=== PATIENT | female | born 1940 | race African-American/Black ===

== ENCOUNTER 2017-07-14 04:41 | Emergency (ER) | payer MEDICARE, BC ==
[~2017-07-14] VITALS: Ht 162.6 cm; Wt 68.0 kg
[2017-07-14 05:43] LABS: BASOPHILS % 0.8 % (0.0-2.0); EOSINOPHILS % 1.8 % (0.0-5.0); HEMATOCRIT. 34.5 % (36.0-48.0); HEMOGLOBIN. 11.8 g/dL (12.0-16.0); LYMPHOCYTES % 20.1 % (20.0-50.0); MEAN CORPUSCULAR HEMOGLOBIN 30.7 pg (28.0-32.0); MEAN CORPUSCULAR VOLUME 89.5 fL (81.0-99.0); MEAN PLATELET VOLUME 8.6 fl (7.4-10.4); MONOCYTES % 6.4 % (2.0-8.0); NEUTROPHILS % 70.9 % (40.0-76.0); PLATELET 207 x1000/uL (130-400); RED BLOOD CELL COUNT 3.86 mill/uL (4.2-5.4); RED CELL DISTRIBUTION WIDTH 14.4 % (11.6-14.6)
[2017-07-14 05:45] LABS: CHLORIDE 108 mEq/L (98-107)
[2017-07-14 05:46] LABS: PROTHROMBIN TIME 10.2 sec (9.4-11.6)
[2017-07-14] MEDS ORDERED: IBUPROFEN 600MG TABLET PO ONE (06:30)
[2017-07-14 06:56] LABS: CLARITY URINE CLEAR (CLEAR); COLOR URINE YELLOW (YELLOW); KETONES URINE NEGATIVE (NEGATIVE); LEUKOCYTE ESTERASE URINE NEGATIVE (NEGATIVE); NITRITE URINE NEGATIVE (NEGATIVE); OCCULT BLOOD URINE NEGATIVE (NEGATIVE); PH URINE 7.5 (4.5-8.0); PROTEIN URINE 2+ (NEGATIVE); SPECIFIC GRAVITY URINE 1.012 (1.005-1.030); UROBILINOGEN URINE 0.2 E.U./dL (0.2-1.0)
[2017-07-14 07:24] VITALS: BP 134/58
== END 2017-07-14 07:54 | disposition home or self-care (01) ==
LOC: ER 04:41
DX: R51 Headache (principal); I10 Essential (primary) hypertension; N28.9 Disorder of kidney and ureter, unspecified; E05.90 Thyrotoxicosis, unspecified without thyrotoxic crisis or storm; R79.1 Abnormal coagulation profile
CPT/HCPCS: 36415; 71045; 80053; 81003; 83880; 84484; 85025; 85610; 93005; 99285

== ENCOUNTER 2017-07-29 10:40 | Inpatient (IN) | payer MEDICARE, BC ==
[~2017-07-29] VITALS: Ht 162.6 cm; Wt 72.1 kg
[2017-07-29 11:39] LABS: CHLORIDE 110 mEq/L (98-107)
[2017-07-29 11:40] LABS: PROTHROMBIN TIME 10.3 sec (9.4-11.6)
[2017-07-29 11:52] LABS: BASOPHILS % 0.5 % (0.0-2.0); EOSINOPHILS % 0.2 % (0.0-5.0); HEMATOCRIT. 41.6 % (36.0-48.0); HEMOGLOBIN. 14.2 g/dL (12.0-16.0); LYMPHOCYTES % 8.4 % (20.0-50.0); MEAN CORPUSCULAR HEMOGLOBIN 30.1 pg (28.0-32.0); MEAN CORPUSCULAR VOLUME 88.2 fL (81.0-99.0); MEAN PLATELET VOLUME 9.2 fl (7.4-10.4); MONOCYTES % 4.7 % (2.0-8.0); NEUTROPHILS % 86.2 % (40.0-76.0); PLATELET 200 x1000/uL (130-400); RED BLOOD CELL COUNT 4.71 mill/uL (4.2-5.4); RED CELL DISTRIBUTION WIDTH 14.4 % (11.6-14.6)
[2017-07-29] MEDS ORDERED: ACETAMINOPHEN 325MG TABLET PO PRN (13:15)
[2017-07-29] MEDS ORDERED: NA PHOS,M-B/NA PHOS,DI-BA ENEMA 118ML PR PRN (13:15)
[2017-07-29] MEDS ORDERED: LORAZEPAM 0.5MG TABLET PO PRN (13:15)
[2017-07-29 13:32] LABS: CLARITY URINE CLEAR (CLEAR); COLOR URINE YELLOW (YELLOW); KETONES URINE NEGATIVE (NEGATIVE); LEUKOCYTE ESTERASE URINE NEGATIVE (NEGATIVE); NITRITE URINE NEGATIVE (NEGATIVE); OCCULT BLOOD URINE TRACE (NEGATIVE); PH URINE 6.5 (4.5-8.0); PROTEIN URINE 2+ (NEGATIVE); SPECIFIC GRAVITY URINE 1.012 (1.005-1.030); UROBILINOGEN URINE 0.2 E.U./dL (0.2-1.0)
[2017-07-29 15:28] LABS: CREATINE KINASE 55 IU/L (26-192)
[2017-07-29 15:29] LABS: CREATINE KINASE MB FRACTION 1.7 ng/mL (0.5-3.6)
[2017-07-29] MEDS: ONDANSETRON HCL 4MG/2ML VIAL IV PRN (15:35)
[2017-07-29] MEDS: AMLODIPINE 10MG TABLET PO SCH (15:50)
[2017-07-29] MEDS: GUAIFENESIN 200MG/10ML SUGAR FREE UDC PO PRN (17:44)
[2017-07-29 22:54] LABS: CREATINE KINASE 44 IU/L (26-192)
[2017-07-29 22:55] LABS: CREATINE KINASE MB FRACTION 1.5 ng/mL (0.5-3.6)
[2017-07-29 23:15] VITALS: BP 144/57
[2017-07-30] MEDS: ENOXAPARIN 30MG/0.3ML SYR SUBCUT SCH ×2 (01:44→20:50)
[2017-07-30] MEDS: SODIUM CHLORIDE 0.9% 1,000 ML IV SCH ×2 (01:50→12:50)
[2017-07-30 04:00] VITALS: BP 124/55
[2017-07-30 06:10] LABS: BASOPHILS % 0.5 % (0.0-2.0); EOSINOPHILS % 0.2 % (0.0-5.0); HEMATOCRIT. 37.3 % (36.0-48.0); HEMOGLOBIN. 12.2 g/dL (12.0-16.0); LYMPHOCYTES % 17.4 % (20.0-50.0); MEAN CORPUSCULAR HEMOGLOBIN 29.4 pg (28.0-32.0); MEAN CORPUSCULAR VOLUME 89.5 fL (81.0-99.0); MEAN PLATELET VOLUME 9.5 fl (7.4-10.4); MONOCYTES % 7.1 % (2.0-8.0); NEUTROPHILS % 74.8 % (40.0-76.0); PLATELET 194 x1000/uL (130-400); RED BLOOD CELL COUNT 4.16 mill/uL (4.2-5.4); RED CELL DISTRIBUTION WIDTH 14.9 % (11.6-14.6)
[2017-07-30] MEDS ORDERED: METO-396 PO (06:31)
[2017-07-30] MEDS ORDERED: LISI2.5T47 PO (06:34)
[2017-07-30] MEDS ORDERED: FEBU40TA PO (06:34)
[2017-07-30] MEDS ORDERED: ASPI-1159 PO (06:34)
[2017-07-30] MEDS ORDERED: NIFE30TA94 PO (06:34)
[2017-07-30] MEDS ORDERED: ROSU5TAB PO (06:34)
[2017-07-30 06:51] LABS: CHLORIDE 111 mEq/L (98-107)
[2017-07-30 07:03] LABS: T4 FREE 1.14 ng/dL (0.76-1.46)
[2017-07-30 07:04] LABS: LDL CHOLESTEROL 88 mg/dL (5-100)
[2017-07-30 07:06] LABS: HDL CHOLESTEROL 54 mg/dL (40-59)
[2017-07-30 08:00] VITALS: BP 139/56
[2017-07-30] MEDS: ONDANSETRON HCL 4MG/2ML VIAL IV PRN (08:52)
[2017-07-30] MEDS: ASPIRIN 81MG EC TABLET PO SCH (08:53)
[2017-07-30] MEDS: AMLODIPINE 10MG TABLET PO SCH (08:53)
[2017-07-30 12:00] VITALS: BP 139/49
[2017-07-30 16:00] VITALS: BP 143/50
[2017-07-30 16:05] VITALS: BP 151/56
[2017-07-30 20:00] VITALS: BP 137/53
[2017-07-31] VITALS: BP_SYST 143; BP_SYST 148; BP_DIAS 58; BP_DIAS 90
[2017-07-31] MEDS: GUAIFENESIN 200MG/10ML SUGAR FREE UDC PO PRN (04:23)
[2017-07-31 05:04] VITALS: BP 144/51
[2017-07-31] MEDS: HYDROCODONE/ACETAMINOPHEN 5/325MG TABLET PO PRN (05:04)
[2017-07-31 06:27] LABS: AMMONIA 25 uMol/L (<32)
[2017-07-31 07:25] LABS: BASOPHILS % 0.7 % (0.0-2.0); EOSINOPHILS % 0.8 % (0.0-5.0); HEMATOCRIT. 32.4 % (36.0-48.0); HEMOGLOBIN. 10.7 g/dL (12.0-16.0); MEAN CORPUSCULAR HEMOGLOBIN 29.8 pg (28.0-32.0); MEAN CORPUSCULAR VOLUME 90.2 fL (81.0-99.0); MEAN PLATELET VOLUME 9.8 fl (7.4-10.4); MONOCYTES % 8.1 % (2.0-8.0); NEUTROPHILS % 53.4 % (40.0-76.0); PLATELET 149 x1000/uL (130-400); RED BLOOD CELL COUNT 3.59 mill/uL (4.2-5.4); RED CELL DISTRIBUTION WIDTH 14.3 % (11.6-14.6)
[2017-07-31 07:47] LABS: CHLORIDE 111 mEq/L (98-107)
[2017-07-31 08:00] VITALS: BP 152/58
[2017-07-31] MEDS: SODIUM CHLORIDE 0.9% 1,000 ML IV SCH ×2 (09:17→23:19)
[2017-07-31] MEDS: ASPIRIN 81MG EC TABLET PO SCH (09:17)
[2017-07-31] MEDS: AMLODIPINE 10MG TABLET PO SCH (09:18)
[2017-07-31 12:00] VITALS: BP 155/60
[2017-07-31 16:00] VITALS: BP 129/66
[2017-07-31] MEDS ORDERED: POTASSIUM CHLORIDE 20MEQ TABLET SR PO SCH (19:00)
[2017-07-31 20:00] VITALS: BP_SYST 166; BP_SYST 173; BP_DIAS 66; BP_DIAS 70
[2017-07-31] MEDS: CLONIDINE 0.1MG TABLET PO PRN (20:29)
[2017-07-31] MEDS: ENOXAPARIN 30MG/0.3ML SYR SUBCUT SCH (20:30)
[2017-07-31] MEDS: DOCUSATE SODIUM 100MG CAPSULE PO PRN (20:41)
[2017-08-01] VITALS: BP 152/63
[2017-08-01 04:00] VITALS: BP 146/53
[2017-08-01] MEDS: GUAIFENESIN 200MG/10ML SUGAR FREE UDC PO PRN (05:00)
[2017-08-01] MEDS: HYDROCODONE/ACETAMINOPHEN 5/325MG TABLET PO PRN (05:12)
[2017-08-01 06:20] LABS: BASOPHILS % 0.8 % (0.0-2.0); EOSINOPHILS % 1.8 % (0.0-5.0); HEMATOCRIT. 32.9 % (36.0-48.0); LYMPHOCYTES % 34.4 % (20.0-50.0); MEAN CORPUSCULAR HEMOGLOBIN 29.9 pg (28.0-32.0); MEAN CORPUSCULAR VOLUME 89.4 fL (81.0-99.0); MEAN PLATELET VOLUME 9.1 fl (7.4-10.4); MONOCYTES % 7.6 % (2.0-8.0); NEUTROPHILS % 55.4 % (40.0-76.0); PLATELET 143 x1000/uL (130-400); RED BLOOD CELL COUNT 3.67 mill/uL (4.2-5.4); RED CELL DISTRIBUTION WIDTH 14.2 % (11.6-14.6)
[2017-08-01 08:00] VITALS: BP_SYST 169; BP_SYST 174; BP_DIAS 67; BP_DIAS 77
[2017-08-01 08:01] LABS: CHLORIDE 112 mEq/L (98-107)
[2017-08-01] MEDS: AMLODIPINE 10MG TABLET PO SCH (08:51)
[2017-08-01] MEDS: ASPIRIN 81MG EC TABLET PO SCH (08:51)
[2017-08-01] MEDS: DOCUSATE SODIUM 100MG CAPSULE PO PRN ×2 (11:27→21:24)
[2017-08-01] MEDS: MECLIZINE 25MG TABLET PO PRN (11:27)
[2017-08-01 12:00] VITALS: BP 141/55
[2017-08-01 12:46] LABS: VITAMIN B12 SERUM 430 pg/mL (211-911)
[2017-08-01] MEDS: SODIUM CHLORIDE 0.9% 1,000 ML IV SCH ×2 (14:28→17:46)
[2017-08-01 16:00] VITALS: BP 118/55
[2017-08-01 20:00] VITALS: BP_SYST 109; BP_SYST 170; BP_SYST 174; BP_DIAS 63; BP_DIAS 69; BP_DIAS 75
[2017-08-01] MEDS: ENOXAPARIN 30MG/0.3ML SYR SUBCUT SCH (21:22)
[2017-08-01] MEDS: CLONIDINE 0.1MG TABLET PO PRN (21:27)
[2017-08-02] VITALS: BP 153/68
[2017-08-02] MEDS: SODIUM CHLORIDE 0.9% 1,000 ML IV SCH (03:58)
[2017-08-02 04:00] VITALS: BP 165/70
[2017-08-02] MEDS: CLONIDINE 0.1MG TABLET PO PRN ×2 (05:04→23:03)
[2017-08-02] MEDS: GUAIFENESIN 200MG/10ML SUGAR FREE UDC PO PRN (05:04)
[2017-08-02 06:51] LABS: CHLORIDE 114 mEq/L (98-107)
[2017-08-02 07:00] LABS: BASOPHILS % 0.8 % (0.0-2.0); EOSINOPHILS % 2.8 % (0.0-5.0); HEMATOCRIT. 32.2 % (36.0-48.0); HEMOGLOBIN. 10.8 g/dL (12.0-16.0); MEAN CORPUSCULAR VOLUME 88.9 fL (81.0-99.0); MEAN PLATELET VOLUME 9.3 fl (7.4-10.4); MONOCYTES % 6.3 % (2.0-8.0); NEUTROPHILS % 53.1 % (40.0-76.0); PLATELET 140 x1000/uL (130-400); RED BLOOD CELL COUNT 3.62 mill/uL (4.2-5.4); RED CELL DISTRIBUTION WIDTH 14.5 % (11.6-14.6)
[2017-08-02 07:10] LABS: PHOSPHORUS 2.7 mg/dL (2.5-4.9)
[2017-08-02 07:40] VITALS: BP 163/69
[2017-08-02] MEDS: AMLODIPINE 10MG TABLET PO SCH (10:28)
[2017-08-02] MEDS: ASPIRIN 81MG EC TABLET PO SCH (10:29)
[2017-08-02 11:27] VITALS: BP 158/59
[2017-08-02] MEDS ORDERED: MAGNESIUM CITRATE 300ML SOLUTION PO SCH (13:15)
[2017-08-02 15:55] VITALS: BP 113/53
[2017-08-02 20:00] VITALS: BP_SYST 154; BP_SYST 182; BP_DIAS 74; BP_DIAS 88
[2017-08-02] MEDS: ENOXAPARIN 30MG/0.3ML SYR SUBCUT SCH (21:39)
[2017-08-02] MEDS: HYDROCODONE/ACETAMINOPHEN 5/325MG TABLET PO PRN (21:41)
[2017-08-03] VITALS (8 sets, daily range): BP systolic 131–182; BP diastolic 46–84
[2017-08-03] MEDS: HYDROCODONE/ACETAMINOPHEN 5/325MG TABLET PO PRN ×2 (02:50→07:01)
[2017-08-03] MEDS: SODIUM CHLORIDE 0.9% 1,000 ML IV SCH ×2 (10:10→20:22)
[2017-08-03] MEDS: MECLIZINE 25MG TABLET PO PRN (11:03)
[2017-08-03] MEDS: ASPIRIN 81MG EC TABLET PO SCH (11:03)
[2017-08-03] MEDS: DOCUSATE SODIUM 100MG CAPSULE PO PRN (11:03)
[2017-08-03] MEDS: AMLODIPINE 10MG TABLET PO SCH (11:06)
[2017-08-03] MEDS: ENOXAPARIN 30MG/0.3ML SYR SUBCUT SCH (21:41)
[2017-08-03] MEDS: GUAIFENESIN 200MG/10ML SUGAR FREE UDC PO PRN (21:41)
[2017-08-04] VITALS: BP 144/50
[2017-08-04] MEDS: GUAIFENESIN 200MG/10ML SUGAR FREE UDC PO PRN (02:09)
[2017-08-04 04:00] VITALS: BP 131/45
[2017-08-04 06:19] LABS: BASOPHILS % 0.8 % (0.0-2.0); EOSINOPHILS % 2.1 % (0.0-5.0); HEMATOCRIT. 33.5 % (36.0-48.0); HEMOGLOBIN. 11.2 g/dL (12.0-16.0); LYMPHOCYTES % 29.4 % (20.0-50.0); MEAN CORPUSCULAR HEMOGLOBIN 29.6 pg (28.0-32.0); MEAN CORPUSCULAR VOLUME 88.5 fL (81.0-99.0); MEAN PLATELET VOLUME 9.5 fl (7.4-10.4); MONOCYTES % 7.2 % (2.0-8.0); NEUTROPHILS % 60.5 % (40.0-76.0); PLATELET 156 x1000/uL (130-400); RED BLOOD CELL COUNT 3.78 mill/uL (4.2-5.4); RED CELL DISTRIBUTION WIDTH 14.2 % (11.6-14.6)
[2017-08-04 06:45] LABS: CHLORIDE 111 mEq/L (98-107)
[2017-08-04 07:39] VITALS: BP 155/62
[2017-08-04] MEDS: ASPIRIN 81MG EC TABLET PO SCH (08:40)
[2017-08-04] MEDS: AMLODIPINE 10MG TABLET PO SCH (08:40)
[2017-08-04 12:28] VITALS: BP 143/62
[2017-08-04 16:32] VITALS: BP 137/87
== END 2017-08-04 17:45 | disposition home or self-care (01) | DRG 73 ==
LOC: ER 11:01 → SUPCPDRO 13:06 → 6WST 13:11 → ENRESERV 21:47
PROVIDERS: ADMIT Hospitalist; ATTEND Hospitalist
PROC: 4A00X4Z Measurement of Central Nervous Electrical Activity, External Approach (ICD-10-PCS; principal; 2017-08-04)
DX: G90.8 Other disorders of autonomic nervous system (principal); N17.0 Acute kidney failure with tubular necrosis; E87.0 Hyperosmolality and hypernatremia; E87.1 Hypo-osmolality and hyponatremia; W18.39XA Other fall on same level, initial encounter; I95.1 Orthostatic hypotension; N18.9 Chronic kidney disease, unspecified; I12.9 Hypertensive chronic kidney disease with stage 1 through stage 4 chronic kidney disease, or unspecified chronic kidney disease; I25.10 Atherosclerotic heart disease of native coronary artery without angina pectoris; D64.9 Anemia, unspecified; E78.00 Pure hypercholesterolemia, unspecified; M10.9 Gout, unspecified; Z60.2 Problems related to living alone; E05.90 Thyrotoxicosis, unspecified without thyrotoxic crisis or storm; Z87.891 Personal history of nicotine dependence; Z90.710 Acquired absence of both cervix and uterus; Z79.899 Other long term (current) drug therapy; Z79.82 Long term (current) use of aspirin; Y93.89 Activity, other specified; Y92.89 Other specified places as the place of occurrence of the external cause; Y99.8 Other external cause status
CPT/HCPCS: 36415; 70450; 70544; 70551; 71045; 71250; 73610; 73630; 74176; 80053; 80061; 81003; 82140; 82550; 82553; 82607; 83735; 83880; 84100; 84439; 84443; 84484; 85025; 85610; 92610; 93005; 93306; 93880; 93970; 97110; 97116; 97162; 97166; 97530; 99285; J1650; J2405; J7030; J8597

== ENCOUNTER → 2017-11-10 | Outpatient (CLI) | payer MEDICARE, BC ==
[~2017-11-10] MED LIST: ASPI-1159 PO; FEBU40TA PO; LISI2.5T47 PO; METO-396 PO; NIFE30TA94 PO; ROSU5TAB PO
== END | disposition home or self-care (01) ==
LOC: CARD 08:39
PROVIDERS: ATTEND Psychiatry & Neurology Neurology
DX: G40.319 Generalized idiopathic epilepsy and epileptic syndromes, intractable, without status epilepticus (principal); I10 Essential (primary) hypertension; Z79.82 Long term (current) use of aspirin

== ENCOUNTER 2018-01-25 16:18 | Inpatient (IN) | payer MEDICARE, BC ==
[~2018-01-25] VITALS: Ht 165.1 cm; Wt 77.6 kg
[2018-01-25] MEDS ORDERED: HYDRALAZINE 20MG/ML VIAL IV ONE (17:00)
[2018-01-25 18:26] LABS: BASOPHILS % 0.3 % (0.0-2.0); HEMATOCRIT. 45.9 % (36.0-48.0); HEMOGLOBIN. 15.1 g/dL (12.0-16.0); MEAN CORPUSCULAR HEMOGLOBIN 28.7 pg (28.0-32.0); MEAN PLATELET VOLUME 9.2 fl (7.4-10.4); MONOCYTES % 4.8 % (2.0-8.0); NEUTROPHILS % 85.9 % (40.0-76.0); PLATELET 252 x1000/uL (130-400); RED BLOOD CELL COUNT 5.27 mill/uL (4.2-5.4); RED CELL DISTRIBUTION WIDTH 15.3 % (11.6-14.6)
[2018-01-25 18:29] LABS: PARTIAL THROMBOPLASTIN TIME 25.8 sec (23.4-31.0)
[2018-01-25 18:30] LABS: CHLORIDE 108 mEq/L (98-107)
[2018-01-25] MEDS ORDERED: LEVETIRACETAM 500MG PREMIX 100 ML IV ONE (19:30)
[2018-01-25] MEDS ORDERED: LORAZEPAM 2MG/ML CPJ IV ONE (19:45)
[2018-01-25] MEDS ORDERED: ASPIRIN 300MG SUPP PR ONE (21:00)
[2018-01-25 21:02] LABS: CLARITY URINE CLOUDY (CLEAR); COLOR URINE YELLOW (YELLOW); KETONES URINE TRACE (NEGATIVE); LEUKOCYTE ESTERASE URINE NEGATIVE (NEGATIVE); NITRITE URINE NEGATIVE (NEGATIVE); OCCULT BLOOD URINE 1+ (NEGATIVE); PROTEIN URINE 3+ (NEGATIVE); SPECIFIC GRAVITY URINE 1.016 (1.005-1.030); UROBILINOGEN URINE 0.2 E.U./dL (0.2-1.0)
[2018-01-25] MEDS ORDERED: SODIUM CHLORIDE 0.9% 1,000 ML IV ONE (21:16)
[2018-01-25] MEDS ORDERED: CLONIDINE 0.2MG TABLET PO ONE (21:30)
[2018-01-25] MEDS ORDERED: ASPIRIN 325MG EC TABLET PO ONE (21:30)
[2018-01-25 23:30] VITALS: BP 129/73
[2018-01-26] MEDS ORDERED: HYDRALAZINE 20MG/ML VIAL IV PRN ×2 (02:15→02:30)
[2018-01-26] MEDS ORDERED: LORAZEPAM 2MG/ML CPJ IV PRN (02:15)
[2018-01-26] MEDS ORDERED: DEXTROSE 50% WATER 50ML SYRINGE IV PRN (02:30)
[2018-01-26 03:46] LABS: T4 FREE 1.21 ng/dL (0.76-1.46)
[2018-01-26 06:00] VITALS: BP 102/51
[2018-01-26] MEDS: DEXT 5%/0.2% NACL 1,000 ML IV SCH ×2 (06:58→12:30)
[2018-01-26] MEDS: BLOOD SUGAR DIAGNOSTIC STRIP TEST SCH ×4 (06:58→21:00)
[2018-01-26] MEDS: INSULIN LISPRO 100 UNITS/ML SUBCUT SCH ×4 (06:59→21:00)
[2018-01-26] MEDS ORDERED: LEVETIRACETAM 500 MG in SODIUM CHLORIDE 0.9% 100 ML IV SCH (07:30)
[2018-01-26 08:00] VITALS: BP 99/53
[2018-01-26] MEDS: NIFEDIPINE XL 60MG TAB PO SCH (09:00)
[2018-01-26 12:00] VITALS: BP 120/61
[2018-01-26 16:00] VITALS: BP 113/59
[2018-01-26 20:00] VITALS: BP 148/57
[2018-01-26] MEDS: LEVETIRACETAM 500 MG in SODIUM CHLORIDE 0.9% 100 ML IV SCH (21:26)
[2018-01-27] VITALS: BP 140/53
[2018-01-27 04:00] VITALS: BP 135/43
[2018-01-27] MEDS: DEXT 5%/0.2% NACL 1,000 ML IV SCH ×4 (06:17→23:22)
[2018-01-27] MEDS: BLOOD SUGAR DIAGNOSTIC STRIP TEST SCH ×3 (06:23→16:05)
[2018-01-27] MEDS: INSULIN LISPRO 100 UNITS/ML SUBCUT SCH ×3 (06:24→16:05)
[2018-01-27 08:30] VITALS: BP 158/63
[2018-01-27] MEDS: NIFEDIPINE XL 60MG TAB PO SCH (08:49)
[2018-01-27] MEDS: LEVETIRACETAM 500 MG in SODIUM CHLORIDE 0.9% 100 ML IV SCH (10:11)
[2018-01-27 12:00] VITALS: BP 145/63
[2018-01-27 16:00] VITALS: BP 126/49
[2018-01-27] MEDS: HYDROCODONE/ACETAMINOPHEN 5/325MG TABLET PO PRN (16:40)
[2018-01-27] MEDS ORDERED: ACETAMINOPHEN 325MG TABLET PO PRN (19:15)
[2018-01-27 20:00] VITALS: BP 142/56
[2018-01-27] MEDS: LEVETIRACETAM 500MG TABLET PO SCH (21:11)
[2018-01-28] VITALS: BP 132/59
[2018-01-28] MEDS: HYDROCODONE/ACETAMINOPHEN 5/325MG TABLET PO PRN ×3 (03:13→21:27)
[2018-01-28 04:00] VITALS: BP 128/50
[2018-01-28] MEDS ORDERED: NON FORMULARY PATIENT HOME MED EA XX SCH (07:15)
[2018-01-28 07:35] VITALS: BP 142/60
[2018-01-28] MEDS: NIFEDIPINE XL 60MG TAB PO SCH (09:05)
[2018-01-28] MEDS: LEVETIRACETAM 500MG TABLET PO SCH ×2 (09:05→21:27)
[2018-01-28] MEDS: DEXT 5%/0.2% NACL 1,000 ML IV SCH ×3 (09:06→21:26)
[2018-01-28 12:00] VITALS: BP 129/48
[2018-01-28 16:00] VITALS: BP 132/57
[2018-01-28 20:00] VITALS: BP 133/63
[2018-01-29] VITALS: BP 145/55
[2018-01-29] MEDS: HYDROCODONE/ACETAMINOPHEN 5/325MG TABLET PO PRN ×2 (01:24→22:56)
[2018-01-29 04:00] VITALS: BP 141/51
[2018-01-29 06:50] LABS: BASOPHILS % 0.7 % (0.0-2.0); EOSINOPHILS % 2.4 % (0.0-5.0); HEMATOCRIT. 34.6 % (36.0-48.0); HEMOGLOBIN. 11.7 g/dL (12.0-16.0); LYMPHOCYTES % 25.1 % (20.0-50.0); MEAN CORPUSCULAR HEMOGLOBIN 29.3 pg (28.0-32.0); MEAN CORPUSCULAR VOLUME 86.5 fL (81.0-99.0); MEAN PLATELET VOLUME 8.9 fl (7.4-10.4); MONOCYTES % 7.2 % (2.0-8.0); NEUTROPHILS % 64.6 % (40.0-76.0); PLATELET 157 x1000/uL (130-400); RED BLOOD CELL COUNT 3.99 mill/uL (4.2-5.4); RED CELL DISTRIBUTION WIDTH 15.2 % (11.6-14.6)
[2018-01-29 08:00] VITALS: BP 123/55
[2018-01-29 08:12] LABS: PHOSPHORUS 3.1 mg/dL (2.5-4.9)
[2018-01-29] MEDS: LEVETIRACETAM 500MG TABLET PO SCH ×2 (08:43→20:37)
[2018-01-29] MEDS: NIFEDIPINE XL 60MG TAB PO SCH (08:43)
[2018-01-29] MEDS: DEXT 5%/0.2% NACL 1,000 ML IV SCH (10:30)
[2018-01-29] MEDS ORDERED: POTASSIUM CHLORIDE 20MEQ TABLET SR PO NR (11:30)
[2018-01-29 12:00] VITALS: BP 119/44
[2018-01-29 13:20] LABS: CREATINE KINASE 68 IU/L (26-192); PHOSPHORUS 2.8 mg/dL (2.5-4.9)
[2018-01-29] MEDS ORDERED: BISACODYL 5MG TABLET PO PRN (14:00)
[2018-01-29] MEDS: LACTULOSE 20G/30ML UDC PO PRN ×2 (14:25→20:41)
[2018-01-29 16:15] LABS: CLARITY URINE CLOUDY (CLEAR); COLOR URINE YELLOW (YELLOW); KETONES URINE NEGATIVE (NEGATIVE); LEUKOCYTE ESTERASE URINE 3+ (NEGATIVE); NITRITE URINE POSITIVE (NEGATIVE); OCCULT BLOOD URINE 1+ (NEGATIVE); PROTEIN URINE TRACE (NEGATIVE); SPECIFIC GRAVITY URINE 1.009 (1.005-1.030); UROBILINOGEN URINE 0.2 E.U./dL (0.2-1.0)
[2018-01-29 16:24] VITALS: BP 126/57
[2018-01-29 20:00] VITALS: BP 116/44
[2018-01-30] VITALS: BP 118/55
[2018-01-30] MEDS: DEXT 5%/0.2% NACL 1,000 ML IV SCH ×3 (01:13→20:49)
[2018-01-30 04:00] VITALS: BP 135/51
[2018-01-30 08:00] VITALS: BP 142/60
[2018-01-30] MEDS: NIFEDIPINE XL 60MG TAB PO SCH (09:09)
[2018-01-30] MEDS: LEVETIRACETAM 500MG TABLET PO SCH ×2 (09:09→20:48)
[2018-01-30] MEDS: DOCUSATE SODIUM 100MG CAPSULE PO SCH (09:09)
[2018-01-30] MEDS ORDERED: POTASSIUM CHLORIDE 20MEQ/PACKET PO NR (10:30)
[2018-01-30] MEDS: HYDROCODONE/ACETAMINOPHEN 5/325MG TABLET PO PRN ×2 (11:06→20:55)
[2018-01-30 12:00] VITALS: BP 132/51
[2018-01-30 16:00] VITALS: BP_SYST 101; BP_SYST 120; BP_DIAS 48; BP_DIAS 54
[2018-01-30 20:00] VITALS: BP 136/46
[2018-01-31] VITALS: BP 140/51
[2018-01-31] MEDS: DEXT 5%/0.2% NACL 1,000 ML IV SCH ×2 (02:30→12:30)
[2018-01-31 04:00] VITALS: BP 142/69
[2018-01-31] MEDS: HYDROCODONE/ACETAMINOPHEN 5/325MG TABLET PO PRN (04:06)
[2018-01-31 07:59] LABS: BASOPHILS % 0.4 % (0.0-2.0); EOSINOPHILS % 2.9 % (0.0-5.0); HEMATOCRIT. 34.9 % (36.0-48.0); HEMOGLOBIN. 11.6 g/dL (12.0-16.0); LYMPHOCYTES % 16.5 % (20.0-50.0); MEAN CORPUSCULAR HEMOGLOBIN 29.2 pg (28.0-32.0); MEAN CORPUSCULAR VOLUME 87.8 fL (81.0-99.0); MONOCYTES % 9.4 % (2.0-8.0); NEUTROPHILS % 70.8 % (40.0-76.0); PLATELET 158 x1000/uL (130-400); RED BLOOD CELL COUNT 3.98 mill/uL (4.2-5.4); RED CELL DISTRIBUTION WIDTH 15.1 % (11.6-14.6)
[2018-01-31 08:00] VITALS: BP_SYST 134; BP_SYST 140; BP_DIAS 62; BP_DIAS 89
[2018-01-31] MEDS: DOCUSATE SODIUM 100MG CAPSULE PO SCH (08:39)
[2018-01-31] MEDS: NIFEDIPINE XL 60MG TAB PO SCH (08:40)
[2018-01-31] MEDS: LEVETIRACETAM 500MG TABLET PO SCH (08:40)
[2018-01-31] MEDS ORDERED: POTASSIUM CHLORIDE 20MEQ TABLET SR PO SCH (09:45)
[2018-01-31 12:00] VITALS: BP 142/66
[2018-01-31 15:03] VITALS: BP 119/43
[2018-01-31 19:25] VITALS: BP 142/66
[2018-02-04] MEDS ORDERED: HYDR-4001 PO (19:57)
[2018-02-04] MEDS ORDERED: LEVE500T19 PO (19:57)
[2018-02-04] MEDS ORDERED: CLON0.2T PO (19:57)
[2018-02-04] MEDS ORDERED: FEBU40TA PO (19:59)
[2018-02-07] MEDS ORDERED: [UNRECOGNIZED DRUG - CODE] PO (11:56)
== END 2018-01-31 17:58 | disposition home health service (06) | DRG 100 ==
LOC: ER 16:33 → 8WST 20:04 → ENRESERV 21:38
PROVIDERS: ADMIT Internal Medicine; ATTEND Internal Medicine
DX: G40.909 Epilepsy, unspecified, not intractable, without status epilepticus (principal); G92 Toxic encephalopathy; N17.9 Acute kidney failure, unspecified; R65.10 Systemic inflammatory response syndrome (SIRS) of non-infectious origin without acute organ dysfunction; I12.9 Hypertensive chronic kidney disease with stage 1 through stage 4 chronic kidney disease, or unspecified chronic kidney disease; N18.9 Chronic kidney disease, unspecified; D64.9 Anemia, unspecified; E78.00 Pure hypercholesterolemia, unspecified; E78.5 Hyperlipidemia, unspecified; E87.6 Hypokalemia; I25.10 Atherosclerotic heart disease of native coronary artery without angina pectoris; E05.90 Thyrotoxicosis, unspecified without thyrotoxic crisis or storm; H93.19 Tinnitus, unspecified ear; M10.9 Gout, unspecified; M19.90 Unspecified osteoarthritis, unspecified site; Z60.2 Problems related to living alone; Z90.710 Acquired absence of both cervix and uterus; Z87.81 Personal history of (healed) traumatic fracture; Z79.82 Long term (current) use of aspirin; Z79.899 Other long term (current) drug therapy
CPT/HCPCS: 36415; 71045; 76770; 80048; 80061; 82550; 82962; 83036; 83735; 83880; 84100; 84132; 84439; 84443; 84484; 87077; 87186; 93005; 93970; 96374; 96375; 97110; 97116; 97162; 97166; 97530; 97535; 99285; C1893; J0360; J1953; J2060; J7030; J7050

== ENCOUNTER 2018-04-06 22:53 | Emergency (ER) | payer MEDICARE, BC ==
[~2018-04-06] VITALS: Ht 165.1 cm; Wt 73.0 kg
[~2018-04-06 22:53] MED LIST changes: +HYDR-4001 PO; +LEVE500T19 PO; -METO-396 PO; -NIFE30TA94 PO; +[UNRECOGNIZED DRUG - CODE] PO
[2018-04-06] MEDS ORDERED: NIFE60TA64 PO (23:17)
[2018-04-07 03:50] VITALS: BP 157/50
== END 2018-04-07 03:54 | disposition home or self-care (01) ==
LOC: ER 04-07 01:15
DX: I10 Essential (primary) hypertension (principal); G40.909 Epilepsy, unspecified, not intractable, without status epilepticus; E87.8 Other disorders of electrolyte and fluid balance, not elsewhere classified; Z79.899 Other long term (current) drug therapy; Z79.82 Long term (current) use of aspirin
CPT/HCPCS: 82962; 99283

== ENCOUNTER 2018-07-18 08:16 | Emergency (ER) | payer BC, MEDICARE ==
[~2018-07-18] VITALS: Ht 165.1 cm; Wt 72.0 kg
[~2018-07-18 08:16] MED LIST changes: +NIFE60TA64 PO
[2018-07-18] MEDS ORDERED: KETOROLAC 30MG/ML VIAL IV STA (08:49)
[2018-07-18] MEDS ORDERED: SODIUM CHLORIDE 0.9% 1,000 ML IV ONE (08:49)
[2018-07-18 09:40] LABS: BASOPHILS % 0.9 % (0.0-2.0); EOSINOPHILS % 0.7 % (0.0-5.0); HEMATOCRIT. 37.5 % (36.0-48.0); HEMOGLOBIN. 12.4 g/dL (12.0-16.0); LYMPHOCYTES % 11.1 % (20.0-50.0); MEAN CORPUSCULAR VOLUME 87.4 fL (81.0-99.0); MEAN PLATELET VOLUME 8.2 fl (7.4-10.4); MONOCYTES % 7.6 % (2.0-8.0); NEUTROPHILS % 79.7 % (40.0-76.0); PLATELET 191 x1000/uL (130-400); RED BLOOD CELL COUNT 4.29 mill/uL (4.2-5.4); RED CELL DISTRIBUTION WIDTH 15.9 % (11.6-14.6)
[2018-07-18 09:43] LABS: CHLORIDE 112 mEq/L (98-107)
[2018-07-18] MEDS ORDERED: ACETAMINOPHEN WITH CODEINE 300/30MG TABLET PO ONE (10:00)
[2018-07-18] MEDS ORDERED: TRAM50TA3 MT (10:09)
[2018-07-18 11:32] LABS: CLARITY URINE CLEAR (CLEAR); COLOR URINE YELLOW (YELLOW); KETONES URINE NEGATIVE (NEGATIVE); LEUKOCYTE ESTERASE URINE NEGATIVE (NEGATIVE); NITRITE URINE NEGATIVE (NEGATIVE); OCCULT BLOOD URINE NEGATIVE (NEGATIVE); PH URINE 7.5 (4.5-8.0); PROTEIN URINE NEGATIVE (NEGATIVE); SPECIFIC GRAVITY URINE 1.007 (1.005-1.030); UROBILINOGEN URINE 0.2 E.U./dL (0.2-1.0)
[2018-07-18 13:00] VITALS: BP 140/84
== END 2018-07-18 13:33 | disposition home or self-care (01) ==
LOC: ER 08:16
DX: G40.909 Epilepsy, unspecified, not intractable, without status epilepticus (principal); I12.9 Hypertensive chronic kidney disease with stage 1 through stage 4 chronic kidney disease, or unspecified chronic kidney disease; N18.9 Chronic kidney disease, unspecified
CPT/HCPCS: 36415; 80053; 81003; 85025; 99283; J1885; J7030